=== PATIENT | female | born 1965 | race Caucasian/White ===

== ENCOUNTER → 2021-01-07 10:39 | Outpatient (BNVA) | payer BC, MEDICARE, SELFPAY | PROVIDERS: PCP Family Medicine; Referring Provider Neurological Surgery; Visit Provider Specialist | DX: G43.711 Chronic migraine without aura, intractable, with status migrainosus (principal); H81.10 Benign paroxysmal vertigo, unspecified ear; Z98.890 Other specified postprocedural states; Z86.79 Personal history of other diseases of the circulatory system; Z87.891 Personal history of nicotine dependence | CPT/HCPCS: 99204 ==

== ENCOUNTER → 2021-04-04 13:03 | Outpatient (BNVA) | payer BC, MEDICARE, SELFPAY | PROVIDERS: PCP Family Medicine; Visit Provider Specialist | DX: G43.711 Chronic migraine without aura, intractable, with status migrainosus (principal); M54.81 Occipital neuralgia; F17.200 Nicotine dependence, unspecified, uncomplicated | CPT/HCPCS: 64405; 99214; J1030; J3490 ==

== ENCOUNTER → 2021-05-09 14:30 | Outpatient (BNVA) | payer BC, MEDICARE, SELFPAY | PROVIDERS: PCP Family Medicine; Visit Provider Specialist | DX: M54.81 Occipital neuralgia (principal); G43.711 Chronic migraine without aura, intractable, with status migrainosus; Z87.891 Personal history of nicotine dependence | CPT/HCPCS: 64405; 64450; 99212; J1030; J3490 ==

== ENCOUNTER → 2021-07-25 14:08 | Outpatient (BNVA) | payer BC, MEDICARE, SELFPAY | PROVIDERS: PCP Family Medicine; Visit Provider Specialist | DX: G43.711 Chronic migraine without aura, intractable, with status migrainosus (principal); Z87.891 Personal history of nicotine dependence; Z98.890 Other specified postprocedural states | CPT/HCPCS: 99213; 99214 ==

== ENCOUNTER → 2021-10-10 12:20 | Outpatient (BNVA) | payer BC, MEDICARE, SELFPAY | PROVIDERS: PCP Family Medicine; Visit Provider Specialist | DX: G43.711 Chronic migraine without aura, intractable, with status migrainosus (principal); G44.85 Primary stabbing headache | CPT/HCPCS: 64615; 96372; 99213; 99214; J0585; J1885 ==

== ENCOUNTER → 2022-01-16 13:09 | Outpatient (BNVA) | payer BC, MEDICARE, SELFPAY | PROVIDERS: PCP Family Medicine; Visit Provider Specialist | DX: G43.711 Chronic migraine without aura, intractable, with status migrainosus (principal); H81.10 Benign paroxysmal vertigo, unspecified ear; Z98.890 Other specified postprocedural states; Z86.79 Personal history of other diseases of the circulatory system; Z87.891 Personal history of nicotine dependence | CPT/HCPCS: 64615; 99213; 99214; J0585 ==

== ENCOUNTER → 2022-04-10 13:41 | Outpatient (BNVA) | payer BC, MEDICARE, SELFPAY | PROVIDERS: PCP Family Medicine; Visit Provider Specialist | DX: G43.711 Chronic migraine without aura, intractable, with status migrainosus (principal) | CPT/HCPCS: 64615; J0585 ==

== ENCOUNTER → 2022-07-03 12:45 | Outpatient (BNVA) | payer BC, MEDICARE, SELFPAY | PROVIDERS: PCP Family Medicine; Visit Provider Specialist | DX: G43.711 Chronic migraine without aura, intractable, with status migrainosus (principal) | CPT/HCPCS: 64615; J0585 ==

== ENCOUNTER → 2024-07-08 14:01 | Outpatient (BNVA) | payer MEDICARE, BC, SELFPAY | PROVIDERS: PCP Family Medicine; Visit Provider Specialist | DX: G43.711 Chronic migraine without aura, intractable, with status migrainosus (principal) | CPT/HCPCS: 64615 ==

== ENCOUNTER 2024-10-21 13:51 | Outpatient (CLI) | payer BC, MEDICARE, SELFPAY ==
--- NOTE | 2024-10-21 14:00 | CT_ITS ---
WS: [id number] CT ANGIOGRAM CEREBRAL AND CAROTID ARTERIES HISTORY: H81.10 - Benign paroxysmal vertigo, unspecified ear TECHNIQUE: CT angiogram is performed of the carotid and cerebral arteries. During arterial injection imaging is obtained from the skull vertex to the aortic arch in 1.25 mm imaging. Coronal and sagittal reformats are submitted. Additional multi planar reformats of the carotid and cerebral arteries are submitted, MIP imaging also reviewed. NASCET criteria utilized. [facility] CT [facility] at least one of these dose optimization techniques: automated exposure control; mA and/or kV adjust ment per patient size (includes targeted exams where dose is matched to clinical indication); or iter ative reconstruction. CONTRAST: Omnipaque 350; 100 mL IV. DLP: 1301.67 mGy.cm COMPARISON: Noncontrast CT head Noncontrast CT head: No acute intracranial hemorrhage. Streak artifact from aneurysm clipping at the anterior cerebral artery. Carotid Angiogram: Right carotid: Common carotid artery: Arises normally from the innominate artery. No significant plaque or stenosis. Internal carotid artery: No plaque or stenosis. External carotid artery: Patent. Left carotid: Common carotid artery: Arises normally from the innominate artery. No significant plaque or stenosis. Internal carotid artery: No plaque or stenosis. External carotid artery: Patent. Right vertebral artery: Small caliber but patent. Left vertebral artery: Dominant LEFT vertebral artery. Patent throughout its course. Subclavian arteries: No stenosis or significant abnormality. Upper thorax: LEFT upper lobe 6 mm groundglass nodule. Scattered atherosclerotic plaque thoracic aort a. Thyroid gland: Normal. Osseous structures: Unremarkable. CEREBRAL ANGIOGRAM: Intracranial vertebral arteries: Small caliber intracranial RIGHT vertebral artery. Both vertebral ar teries are patent. Basilar artery: No significant stenosis or occlusion. No aneurysm. No aneurysm identified from the ba silar artery. Intracranial Internal carotid arteries: No stenosis. Small amount of calcified plaque through the car otid cavernous sinuses. Middle cerebral arteries: Portions of the proximal middle cerebral arteries are obscured by beam hard ening artifact secondary to aneurysm clips. No stenosis or occlusion identified. Anterior cerebral arteries and ACOM: Prior aneurysm clipping at the anterior communicating cerebral a rtery. There is beam hardening artifact causing partial obscuration of the central cerebral arteries. Posterior cerebral arteries and PCOM's: Normal. Dural venous sinuses are normally enhancing. Mastoid air cells: Normal. Paranasal sinuses: Normal. Calvarium: LEFT frontal temporal craniotomy. CT/CT angio headneck* [id number] IMPRESSION: 1. 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 2. No recurrent aneurysm or new aneurysm identified. Small portions near the a nterior cerebral arteries are obscured by beam hardening artifact. 3. No basilar artery aneurysm. 4. Bovine arch. 5. Dominant LEFT vertebral artery. Very small caliber RIGHT vertebral artery b ut it is patent.
[2024-10-21] MEDS: iohexol 350 mg/mL 500 mL Btl (per mL) IV (14:01)
[2024-10-21 14:39] LABS: Blood Urea Nitrogen 14 mg/dL (8-23); Glomerular Filtration Rate 56.6 mL/min (90-130)
== END 2024-10-21 13:52 | disposition home or self-care (01) ==
PROVIDERS: PCP Family Medicine; Visit Provider Specialist
DX: H81.10 Benign paroxysmal vertigo, unspecified ear (principal); Z98.890 Other specified postprocedural states; Q25.49 Other congenital malformations of aorta; R93.0 Abnormal findings on diagnostic imaging of skull and head, not elsewhere classified; R93.89 Abnormal findings on diagnostic imaging of other specified body structures; I70.0 Atherosclerosis of aorta
CPT/HCPCS: 70496; 70498; 82565; 84520

== ENCOUNTER → 2025-04-20 13:04 | Outpatient (BNVA) | payer MEDICARE, BC, SELFPAY | PROVIDERS: PCP Family Medicine; Visit Provider Specialist | DX: G43.711 Chronic migraine without aura, intractable, with status migrainosus (principal); Z98.890 Other specified postprocedural states; Z86.79 Personal history of other diseases of the circulatory system; H81.10 Benign paroxysmal vertigo, unspecified ear | CPT/HCPCS: 64615; J9999 ==